=== PATIENT | female | born 1990 ===

== ENCOUNTER 2017-08-25 08:36 | Inpatient (IN) | payer OTHER ==
[~2017-08-25] VITALS: Ht 154.9 cm; Wt 83.9 kg
[2017-08-25] MEDS ORDERED: PRENATAL 19 TA1 EACH PO (10:01)
[2017-08-27] MEDS ORDERED: CODE1TAB37 PO (08:48)
== END 2017-08-27 12:34 | DRG 775 ==
LOC: LDR 08:36 → OB/GYN 13:58
PROC: 10E0XZZ Delivery of Products of Conception, External Approach (ICD-10-PCS; principal; 2017-08-25)
PROC: 4A1HXCZ Monitoring of Products of Conception, Cardiac Rate, External Approach (ICD-10-PCS; 2017-08-25)
PROC: 4A033R1 Measurement of Arterial Saturation, Peripheral, Percutaneous Approach (ICD-10-PCS; 2017-08-25)
DX: O80 Encounter for full-term uncomplicated delivery (principal); Z3A.38 38 weeks gestation of pregnancy; Z37.0 Single live birth